=== PATIENT | female | born 1960 | race Caucasian/White ===

== ENCOUNTER 2022-12-15 06:07 | Day surgery (SDC) | payer BC ==
[2022-12-12 17:34] VITALS: BMI 36.3
[2022-12-15] MEDS ORDERED: fentaNYL PF 100 MCG/2 ML SYRINGE ONE (06:29)
[2022-12-15] MEDS ORDERED: Acetaminophen 500 MG TAB ONE (06:30)
[2022-12-15] MEDS ORDERED: CEFAZOLIN 2 GM VIAL ONE (06:30)
[2022-12-15] MEDS ORDERED: Sodium Chloride 0.9% 100 ML ONE (06:30)
[2022-12-15] MEDS ORDERED: Ketorolac Tromethamine 30 MG/ML VIAL ONE (06:30)
[2022-12-15] MEDS ORDERED: Bupivacaine 0.25% HCL 30 ML VIAL ONE (06:31)
[2022-12-15] MEDS ORDERED: EPINEPHrine 1 MG/ML AMP ONE (06:31)
[2022-12-15] MEDS ORDERED: Famotidine/PF 20 mg/2ml Vial ONE (06:58)
[2022-12-15] MEDS ORDERED: Ondansetron PF 4 MG/2 ML Vial ONE (07:35)
[2022-12-15] MEDS ORDERED: PROPOFOL 200 MG/20 ML VIAL ONE (07:35)
[2022-12-15] MEDS ORDERED: Dexamethasone 20 MG/5 ML VIAL ONE (07:35)
[2022-12-15] MEDS ORDERED: Lidocaine 1% PF 5 ML VIAL ONE (07:35)
[2022-12-15] MEDS ORDERED: ePHEDrine Sulfate 50 MG/10 ML VIAL ONE (07:35)
[2022-12-15] MEDS ORDERED: PROPOFOL 0 ML ONE (07:42)
[2022-12-15] MEDS ORDERED: HYDROcodone/Acetaminophen 5/325 mg Tablet ONE (10:14)
== END 2022-12-15 11:05 | disposition home or self-care (01) ==
LOC: SDC 06:07
PROVIDERS: ATTEND Specialist
PROC: 06BY0ZC Excision of Hemorrhoidal Plexus, Open Approach (ICD-10-PCS; principal; 2022-12-15)
DX: K64.8 Other hemorrhoids (principal); K64.4 Residual hemorrhoidal skin tags; Z88.5 Allergy status to narcotic agent
CPT/HCPCS: 88304; J0171; J1100; J1885; J2405; J2704; J3490; S0020; S0028